=== PATIENT | female | born 1950 | race Caucasian/White ===

== ENCOUNTER 2022-09-30 15:47 | Emergency (ER) | payer MEDICARE, OTHER ==
[~2022-09-30] VITALS: Ht 149.9 cm; Wt 59.9 kg
--- NOTE | 2022-09-30 16:00 | NUR ---
DR NORIEGA AT BEDSIDE
[2022-09-30] MEDS ORDERED: ACETAMINOPHEN 325 MG TABLET ONE (16:13)
[2022-09-30] MEDS ORDERED: ACETAMINOPHEN 325 MG TABLET PO ONE (16:30)
--- NOTE | 2022-09-30 17:25 | NUR ---
[facility] CALLED FOR TRANSPORT ETA 45 MINS.
[2022-09-30] MEDS ORDERED: ACET-2605 PO (17:52)
--- NOTE | 2022-09-30 19:05 | NUR ---
PATIENT PICKED UP BY [facility] [address] IN STABLE CONDITION. PATIENT WILL BE BROUGHT TO [facility]. ALL BELONGINGS BROUGHT WITH THE PATIENT. SPOKE TO Chefs Feed AT [facility] FOR REPORT.
[2022-09-30 19:18] VITALS: BP 139/67
== END 2022-09-30 19:20 ==
LOC: ER 15:50
DX: M54.6 Pain in thoracic spine (principal); I11.0 Hypertensive heart disease with heart failure; I50.9 Heart failure, unspecified; Z88.8 Allergy status to other drugs, medicaments and biological substances; W18.30XA Fall on same level, unspecified, initial encounter; Y93.89 Activity, other specified; Y92.89 Other specified places as the place of occurrence of the external cause; Y99.8 Other external cause status
CPT/HCPCS: 73020

== ENCOUNTER 2022-11-18 07:33 | Inpatient (IN) | payer MEDICARE, OTHER ==
[~2022-11-18] VITALS: Ht 162.6 cm; Wt 61.7 kg
[~2022-11-18 07:33] MED LIST: ACET-2605 PO
[2022-11-18] MEDS ORDERED: NITROGLYCERIN PACKET 1 GM PACKET ONE ×2 (07:47→08:28)
[2022-11-18] MEDS ORDERED: ASPIRIN 325 MG TABLET ONE ×2 (07:47→08:29)
--- NOTE | 2022-11-18 07:50 | NUR ---
Made aware of plan of care- Pt States "I have NO Pain now." Refusing HL at this time
[2022-11-18] MEDS ORDERED: ASPIRIN 325 MG TABLET PO ONE (08:00)
[2022-11-18] MEDS ORDERED: NITROGLYCERIN PACKET 1 GM PACKET TD ONE (08:00)
--- NOTE | 2022-11-18 08:00 | NUR ---
MOVE SHEET SUBMITTED.
--- NOTE | 2022-11-18 08:07 | NUR ---
PATIENT REFUSED TO HAVE IV ACCESS AND MEDICATIONS. MADE AWARE
--- NOTE | 2022-11-18 08:07 | NUR ---
BLOOD SAMPLE OBTAINED BY LAB
--- NOTE | 2022-11-18 08:08 | NUR ---
URINE SAMPLE OBTAINED
[2022-11-18 08:31] LABS: BASOPHILS % (AUTO) 0.5 % (0.0-2.0); CALCIUM, SERUM 9.2 mg/dL (8.5-10.1); CARBON DIOXIDE 32 mmol/L (21-32); CHLORIDE 107 mmol/L (98-107); CREATININE 0.7 mg/dL (0.6-1.3); EOSINOPHILS % (AUTO) 4.5 % (0.0-6.0); GLUCOSE 96 mg/dL (74-106); HEMATOCRIT 34 % (33-45); HEMOGLOBIN 10.9 g/dL (11.5-14.8); LYMPHOCYTES # (AUTO) 1.2 K/uL (0.8-4.8); LYMPHOCYTES % (AUTO) 32.6 % (20.0-44.0); MEAN CORPUSCULAR HGB CONC 33 g/dl (31.0-36.0); MEAN CORPUSCULAR VOLUME 82 fL (82-100); MONOCYTES # (AUTO) 0.3 K/uL (0.1-1.30); MONOCYTES % (AUTO) 7.9 % (2.0-12.0); NEUTROPHILS % (AUTO) 54.5 % (43.0-81.0); PLATELET COUNT (AUTO) 202 K/uL (150-450); RED BLOOD CELL COUNT(AUTO) 4.11 MIL/uL (4.0-5.2); SODIUM SERUM 141 mmol/L (136-145); UREA NITROGEN, BLOOD 18 mg/dL (7-18); WHITE BLOOD COUNT (AUTO) 3.6 K/uL (4.3-11.0)
[2022-11-18 08:44] LABS: ALANINE AMINOTRANSFERASE 20 U/L (12-78); ALKALINE PHOSPHATASE 82 U/L (46-116); ASPARTATE AMINOTRANSFERASE 20 U/L (15-37); BILIRUBIN,DIRECT 0.1 mg/dL (0.0-0.2); BILIRUBIN,TOTAL 0.4 mg/dL (0.2-1.0); TOTAL PROTEIN, SERUM 7.4 g/dL (6.4-8.2)
--- NOTE | 2022-11-18 09:00 | NUR ---
Pt got very agitated/uncooperative and combative during IV stick Tried to bite EMT jenny, was cussing and calling staff names. Tried to kick. Had to be held by couple of personnel to successfully insert a line on Left Forearm. IV site secured and covered with kerlix dressing
[2022-11-18] MEDS ORDERED: DIVA250T4 PO (10:23)
[2022-11-18] MEDS ORDERED: FURO20TA4 PO (10:23)
[2022-11-18] MEDS ORDERED: DOCU100T10 PO (10:23)
[2022-11-18] MEDS ORDERED: LISI10TA29 PO (10:23)
[2022-11-18] MEDS ORDERED: LANS15CA18 PO (10:23)
[2022-11-18] MEDS ORDERED: OLAN15TA3 PO (10:23)
[2022-11-18] MEDS ORDERED: DONE5TAB34 PO (10:23)
[2022-11-18] MEDS ORDERED: POTA-10 PO (10:23)
[2022-11-18] MEDS ORDERED: FOLI1TAB26 PO (10:23)
[2022-11-18] MEDS ORDERED: CLON0.5T23 PO (10:23)
[2022-11-18] MEDS ORDERED: ACETAMINOPHEN 325 MG TABLET PO PRN ×2 (10:30→12:00)
[2022-11-18] MEDS ORDERED: MAG HYDROX/AL HYDROX/SIMETH 30 ML UDC PO PRN ×2 (10:30→12:00)
[2022-11-18] MEDS ORDERED: ZOLPIDEM TARTRATE 5 MG TABLET PO PRN ×2 (10:30→12:00)
[2022-11-18] MEDS ORDERED: MORPHINE SULFATE INJ 2 MG/ML DISP.SYRIN IV PRN ×2 (10:30→12:00)
[2022-11-18] MEDS ORDERED: ONDANSETRON HCL/PF 4 MG/2 ML VIAL IVP PRN ×2 (10:30→12:00)
[2022-11-18] MEDS ORDERED: Z GUARD REMEDY 4 OZ OINT TP PRN ×2 (10:30→12:00)
[2022-11-18] MEDS ORDERED: MAGNESIUM HYDROXIDE 30 ML UDC PO PRN ×2 (10:30→12:00)
--- NOTE | 2022-11-18 11:47 | NUR ---
NO acute changes/No obvious distress. Pt going to 325. Report to RN- Kailey. VSS denies any CP at this time
--- NOTE | 2022-11-18 12:15 | NUR ---
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 PT ARRIVED IN UNIT VIA GURNEY, PT TRANSFERRED TO BED WITH 2 PERSON ASSIST. PT IS UNSTEADY, UNABLE TO AMBULATE BUT ABLE TO TURN SELF AND SIT AT EDGE OF BED, PT ON BEDREST PENDING PT EVAL. PT IS AWAKE, ALERT/ORIENTED X2-3 WITH PERIODS OF FORGETFULNESS/CONFUSION. PT IS ALERT TO NAME, PLACE AND SOMETIMES DATE. PT ON RA WITH NO S/S OF SOB, DENIES CHEST PAIN AT THIS TIME. ON TELE MONITOR, CURRENTLY READS SR, HR= 75. IV ACCESS AT LFA # 20, SL, INTACT AND PATENT, WRAPPED IN KERLIX. PT'S SKIN IN INTACT, WITH 2 SMALL BRUISING AT R KNEE, PHOTO TAKEN AFFIXED TO CHART. PT STATES SHE IS VERY HUNGRY, ORDERED LUNCH TRAY PER DIET ORDER. PT ORIENTED TO STAFF AND UNIT, GIVEN CALL LIGHT TO CALL FOR HELP, PT VERBALIZED UNDERSTANDING. ALL SAFETY MEASURES IN PLACE, TABLE AND CALL LIGHT WITHIN EASY REACH, WILL CONT WITH PLAN OF CARE DURING SHIFT.
[2022-11-18 15:21] VITALS: BP 134/77
[2022-11-18] MEDS ORDERED: DOCUSATE SODIUM 100 MG CAPSULE PO SCH (17:00)
[2022-11-18] MEDS ORDERED: OLANZAPINE 5 MG TABLET PO SCH (17:00)
[2022-11-18] MEDS ORDERED: DIVALPROEX SODIUM 250 MG TABLET.DR PO SCH (17:00)
[2022-11-18] MEDS: DOCUSATE SODIUM 100 MG CAPSULE PO SCH (17:36)
[2022-11-18] MEDS: DIVALPROEX SODIUM 250 MG TABLET.DR PO SCH (17:36)
[2022-11-18] MEDS: OLANZAPINE 5 MG TABLET PO SCH (17:38)
--- NOTE | 2022-11-18 19:00 | NUR ---
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 HER LEGS EDEMATOUS 1 - 2+ EDEMA WARM TO TOUCH REVIEWED THE CALL LIGHT WITH HER TOLD HE NOT TO GET OOB W/O THE NURSE.
--- NOTE | 2022-11-18 19:13 | NUR ---
[facility] [employer] [employer] CLOSING NOTES: PT IS AWAKE, ALERT/ORIENTED X2-3 WITH PERIODS OF FORGETFULNESS/CONFUSION. FAMILY AT BEDSIDE. PT IS ALERT TO NAME, PLACE AND SOMETIMES DATE PT IS UNSTEADY, UNABLE TO AMBULATE BUT ABLE TO TURN SELF AND SIT AT EDGE OF BED, PT ON BEDREST PENDING PT EVAL. . PT ON RA WITH NO S/S OF SOB, DENIES CHEST PAIN AT THIS TIME. ON TELE MONITOR, CURRENTLY READS SR, HR= 68. IV ACCESS AT LFA # 20, SL, INTACT AND PATENT, WRAPPED IN KERLIX. GIVEN CALL LIGHT TO CALL FOR HELP, PT VERBALIZED UNDERSTANDING. ALL SAFETY MEASURES IN PLACE, TABLE AND CALL LIGHT WITHIN EASY REACH, ENDORSED TO PM SHIFT. Addendum: 11/18/22 at 1932 by MARCO JENSEN RN BLE SWELLING, HELD DVT PUMP, ASKED FOR CHEM DVT PPX, PENDING
[2022-11-18 20:00] VITALS: BP 133/82
[2022-11-19] VITALS: BP 130/80
[2022-11-19 04:00] VITALS: BP 126/55
--- NOTE | 2022-11-19 05:52 | NUR ---
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
[2022-11-19] MEDS ORDERED: PANTOPRAZOLE 40 MG TABLET.DR PO SCH ×2 (07:30)
--- NOTE | 2022-11-19 07:30 | NUR ---
ms rn received on bed, awake,alert.oriented x1-2, confuse, not in any form of distress, respirations even and unlabored,no sob noted, lungs are clear,abdomen soft,positive bowel sounds,denies pain at this time, will monitor patient.
[2022-11-19 08:00] VITALS: BP 145/77
[2022-11-19] MEDS ORDERED: LISINOPRIL (10MG) 10 MG TABLET PO SCH ×2 (09:00)
[2022-11-19] MEDS ORDERED: FUROSEMIDE 20 MG TABLET PO SCH ×2 (09:00)
[2022-11-19] MEDS ORDERED: DONEPEZIL 5 MG TABLET PO SCH ×2 (09:00)
[2022-11-19] MEDS ORDERED: POTASSIUM CHLORIDE 10 MEQ TABLET.SA PO SCH ×2 (09:00)
[2022-11-19] MEDS ORDERED: ASPIRIN 81 MG TAB.CHEW PO SCH ×2 (09:00)
[2022-11-19] MEDS ORDERED: MULTIVITAMIN/LUTEIN/MINERALS 1 TAB PO SCH ×2 (09:00)
--- NOTE | 2022-11-19 10:00 | NUR ---
ms manzanares breakfast served,due meds given,tolerated well.
[2022-11-19] MEDS: DOCUSATE SODIUM 100 MG CAPSULE PO SCH ×2 (10:05→17:42)
[2022-11-19] MEDS: DIVALPROEX SODIUM 250 MG TABLET.DR PO SCH ×2 (10:08→17:42)
[2022-11-19] MEDS: OLANZAPINE 5 MG TABLET PO SCH ×2 (10:08→17:42)
[2022-11-19 12:00] VITALS: BP 120/70
--- NOTE | 2022-11-19 17:24 | NUR ---
ms rn patient on bed, no distress noted,all needs attended.
--- NOTE | 2022-11-19 18:00 | NUR ---
ms rn ready to be transferred, patient refuse to take picture of small bruise at right knee.
--- NOTE | 2022-11-19 18:15 | NUR ---
ms rn patient went to [facility] at [facility] living via ambulance, all needs attended.
== END 2022-11-19 18:29 | DRG 205 ==
LOC: ER 07:51 → TELE 11:55
PROVIDERS: ADMIT Nurse Practitioner Acute Care; ATTEND Nurse Practitioner Acute Care
DX: M94.0 Chondrocostal junction syndrome [Tietze] (principal); G92.8 Other toxic encephalopathy; E44.0 Moderate protein-calorie malnutrition; Z20.822 Contact with and (suspected) exposure to COVID-19; F03.90 Unspecified dementia, unspecified severity, without behavioral disturbance, psychotic disturbance, mood disturbance, and anxiety; I11.0 Hypertensive heart disease with heart failure; I50.9 Heart failure, unspecified; K21.9 Gastro-esophageal reflux disease without esophagitis; Z88.8 Allergy status to other drugs, medicaments and biological substances; Z79.899 Other long term (current) drug therapy; E88.09 Other disorders of plasma-protein metabolism, not elsewhere classified; Z79.82 Long term (current) use of aspirin; I70.0 Atherosclerosis of aorta
CPT/HCPCS: 36415; 71045-TC; 80048-TC; 80076-TC; 83880; 84484-TC; 85025-TC; 87081-TC; 93307-TC; 97110-TC; 97112-TC; 97116-TC; C9803; G0378

== ENCOUNTER 2023-07-09 09:55 | Inpatient (IN) | payer MEDICARE, OTHER ==
[~2023-07-09] VITALS: Ht 165.1 cm; Wt 64.0 kg
[~2023-07-09 09:55] MED LIST changes: +CLON0.5T23 PO; +DIVA250T4 PO; +DOCU100T10 PO; +DONE5TAB34 PO; +FOLI1TAB26 PO; +FURO20TA4 PO; +LANS15CA18 PO; +LISI10TA29 PO; +OLAN15TA3 PO; +POTA-10 PO
[2023-07-09 11:33] LABS: BASOPHILS % (AUTO) 0.4 % (0.0-2.0); EOSINOPHILS # (AUTO) 0.4 K/uL (0.0-0.7); EOSINOPHILS % (AUTO) 7.7 % (0.0-6.0); HEMATOCRIT 34 % (33-45); HEMOGLOBIN 11.3 g/dL (11.5-14.8); LYMPHOCYTES % (AUTO) 41.1 % (20.0-44.0); MEAN CORPUSCULAR HEMOGLOBIN 28 PG (26.0-33.0); MEAN CORPUSCULAR HGB CONC 33 g/dl (31.0-36.0); MEAN CORPUSCULAR VOLUME 84 fL (82-100); MONOCYTES # (AUTO) 0.6 K/uL (0.1-1.30); MONOCYTES % (AUTO) 11.2 % (2.0-12.0); NEUTROPHILS % (AUTO) 39.6 % (43.0-81.0); PLATELET COUNT (AUTO) 162 K/uL (150-450); RED BLOOD CELL COUNT(AUTO) 4.08 MIL/uL (4.0-5.2); RED CELL DISTRIBUTION WIDTH 14.6 % (11.5-15.0)
[2023-07-09 11:35] LABS: CALCIUM, SERUM 9.1 mg/dL (8.5-10.1); CARBON DIOXIDE 24 mmol/L (21-32); CHLORIDE 108 mmol/L (98-107); CREATININE 0.6 mg/dL (0.6-1.3); GLUCOSE 102 mg/dL (74-106); POTASSIUM 4.8 mmol/L (3.5-5.1); SODIUM SERUM 140 mmol/L (136-145); UREA NITROGEN, BLOOD 22 mg/dL (7-18)
[2023-07-09 11:37] LABS: ALANINE AMINOTRANSFERASE 18 U/L (12-78); ALBUMIN 2.8 g/dL (3.4-5.0); ALCOHOL, BLOOD < 3 mg/dL (0-10); ALKALINE PHOSPHATASE 111 U/L (46-116); ASPARTATE AMINOTRANSFERASE 18 U/L (15-37); BILIRUBIN,TOTAL 0.3 mg/dL (0.2-1.0); TOTAL PROTEIN, SERUM 7.5 g/dL (6.4-8.2)
[2023-07-09 11:38] LABS: ACETAMINOPHEN <10 ug/ml (10-30); BILIRUBIN,DIRECT < 0.1 mg/dL (0.0-0.2); SALICYLATE 0.5 mg/dL (2.8-20.0)
[2023-07-09] MEDS ORDERED: TOLT4CAP PO (14:46)
[2023-07-09] MEDS ORDERED: LOSA50TA39 PO (14:46)
[2023-07-09] MEDS ORDERED: ESCI5TAB PO (14:46)
[2023-07-09] MEDS ORDERED: OLAN5TAB6 SL (14:46)
[2023-07-09] MEDS ORDERED: CARV6.25 PO (14:46)
[2023-07-09] MEDS ORDERED: CLON0.1T PO (14:47)
[2023-07-09] MEDS ORDERED: ATOR40TA PO (14:47)
[2023-07-09 16:00] VITALS: BP 150/82; TEMP 98.8; O2SAT 99
[2023-07-09 16:28] VITALS: BP 150/82; TEMP 98.8; O2SAT 99
[2023-07-09] MEDS ORDERED: TEMAZEPAM 7.5 MG CAPSULE PO PRN (16:30)
[2023-07-09] MEDS ORDERED: BLOOD SUGAR DIAGNOSTIC 1 EACH STRIP IN ONE (16:30)
[2023-07-09] MEDS ORDERED: MAGNESIUM HYDROXIDE 30 ML UDC PO PRN (16:30)
[2023-07-09] MEDS ORDERED: ACETAMINOPHEN 325 MG TABLET PO PRN (16:30)
[2023-07-09] MEDS ORDERED: MAG HYDROX/AL HYDROX/SIMETH 30 ML UDC PO PRN (16:30)
[2023-07-09 20:01] VITALS: BP 144/98; TEMP 98.4; O2SAT 100
[2023-07-10 08:00] VITALS: BP 123/56; TEMP 98.4; O2SAT 96
[2023-07-10] MEDS: OLANZAPINE ZYDIS 5 MG TAB.RAPDIS PO SCH ×2 (11:53→11:56)
[2023-07-10 16:00] VITALS: BP 128/65; TEMP 97.9; O2SAT 100
[2023-07-10 20:04] VITALS: BP 140/84; TEMP 97.9; O2SAT 96
[2023-07-11 08:00] VITALS: BP 157/62; TEMP 97.7; O2SAT 99
[2023-07-11] MEDS: OLANZAPINE ZYDIS 5 MG TAB.RAPDIS PO SCH ×2 (08:51→21:43)
[2023-07-11 16:00] VITALS: BP 158/73; TEMP 98.6; O2SAT 97
[2023-07-11 21:55] VITALS: BP 148/74; TEMP 98.8; O2SAT 100
[2023-07-12 08:00] VITALS: BP 153/81; TEMP 98; O2SAT 98
[2023-07-12] MEDS ORDERED: CLONIDINE HCL 0.1 MG TABLET PO PRN (09:30)
[2023-07-12] MEDS: risperiDONE-M 0.5 MG TAB.RAPDIS PO SCH ×3 (11:41→21:09)
[2023-07-12] MEDS: OXYBUTYNIN CHLORIDE 5 MG TABLET PO SCH ×2 (12:38→16:32)
[2023-07-12 16:00] VITALS: BP 132/77; TEMP 98.7; O2SAT 100
[2023-07-12] MEDS: CARVEDILOL 6.25 MG TABLET PO SCH (16:34)
[2023-07-12 20:31] VITALS: BP 140/68; TEMP 97.9; O2SAT 100
[2023-07-12] MEDS: ATORVASTATIN 40 MG TABLET PO SCH ×2 (21:09→21:16)
[2023-07-13 08:00] VITALS: BP 179/86; TEMP 97.9; O2SAT 100
[2023-07-13] MEDS: CARVEDILOL 6.25 MG TABLET PO SCH ×3 (08:36→17:03)
[2023-07-13] MEDS: LOSARTAN POTASSIUM 50 MG TABLET PO SCH (08:37)
[2023-07-13] MEDS: risperiDONE-M 0.5 MG TAB.RAPDIS PO SCH ×3 (09:00→21:32)
[2023-07-13] MEDS: OXYBUTYNIN CHLORIDE 5 MG TABLET PO SCH ×4 (09:00→17:02)
[2023-07-13] MEDS ORDERED: OLANZAPINE 10 MG VIAL IM ONE (10:00)
[2023-07-13] MEDS ORDERED: risperiDONE-M 0.5 MG TAB.RAPDIS PO SCH (10:00)
[2023-07-13 16:00] VITALS: BP 118/62; TEMP 97.7; O2SAT 100
[2023-07-13 20:31] VITALS: BP 133/86; TEMP 97.7; O2SAT 100
[2023-07-13] MEDS ORDERED: risperiDONE-M 0.5 MG TAB.RAPDIS ONE (21:29)
[2023-07-13] MEDS: ATORVASTATIN 40 MG TABLET PO SCH (21:32)
[2023-07-14 08:00] VITALS: BP 137/71; TEMP 97.8; O2SAT 97
[2023-07-14] MEDS: LOSARTAN POTASSIUM 50 MG TABLET PO SCH (09:00)
[2023-07-14] MEDS: CARVEDILOL 6.25 MG TABLET PO SCH ×2 (09:00→17:00)
[2023-07-14] MEDS: OXYBUTYNIN CHLORIDE 5 MG TABLET PO SCH ×3 (09:00→17:00)
[2023-07-14] MEDS: risperiDONE LIQUID 1 MG/ML ML PO SCH ×2 (10:00→21:00)
[2023-07-14] MEDS: OLANZAPINE 10 MG VIAL IM PRN ×2 (11:06→22:10)
[2023-07-14 16:00] VITALS: BP 121/90; TEMP 97.8; O2SAT 100
[2023-07-14 20:00] VITALS: BP 128/75; TEMP 97.5; O2SAT 98
[2023-07-14] MEDS: ATORVASTATIN 40 MG TABLET PO SCH (21:15)
[2023-07-15 08:00] VITALS: BP 155/70; TEMP 97.6; O2SAT 95
[2023-07-15] MEDS: LOSARTAN POTASSIUM 50 MG TABLET PO SCH (09:59)
[2023-07-15] MEDS: risperiDONE LIQUID 1 MG/ML ML PO SCH ×2 (09:59→21:24)
[2023-07-15] MEDS: OXYBUTYNIN CHLORIDE 5 MG TABLET PO SCH ×3 (09:59→16:34)
[2023-07-15] MEDS: CARVEDILOL 6.25 MG TABLET PO SCH ×2 (10:00→16:34)
[2023-07-15 16:00] VITALS: BP 111/64; TEMP 97.6; O2SAT 100
[2023-07-15 20:00] VITALS: BP 125/55; TEMP 98.1; O2SAT 95
[2023-07-15] MEDS: ATORVASTATIN 40 MG TABLET PO SCH (21:24)
[2023-07-16 08:00] VITALS: BP 126/60; TEMP 97.8; O2SAT 99
[2023-07-16] MEDS: LOSARTAN POTASSIUM 50 MG TABLET PO SCH (09:44)
[2023-07-16] MEDS: risperiDONE LIQUID 1 MG/ML ML PO SCH ×2 (09:45→20:57)
[2023-07-16] MEDS: OXYBUTYNIN CHLORIDE 5 MG TABLET PO SCH ×3 (09:45→16:44)
[2023-07-16] MEDS: CARVEDILOL 6.25 MG TABLET PO SCH ×2 (09:45→16:43)
[2023-07-16 16:00] VITALS: BP 127/84; TEMP 97.7; O2SAT 97
[2023-07-16 20:03] VITALS: BP 157/71; TEMP 99.1; O2SAT 99
[2023-07-16] MEDS: ATORVASTATIN 40 MG TABLET PO SCH (22:03)
[2023-07-17 08:00] VITALS: BP 145/62; TEMP 97.8; O2SAT 97
[2023-07-17] MEDS: LOSARTAN POTASSIUM 50 MG TABLET PO SCH (08:35)
[2023-07-17] MEDS: CARVEDILOL 6.25 MG TABLET PO SCH ×2 (08:35→16:17)
[2023-07-17] MEDS: OXYBUTYNIN CHLORIDE 5 MG TABLET PO SCH ×4 (08:35→16:18)
[2023-07-17] MEDS: risperiDONE LIQUID 1 MG/ML ML PO SCH ×3 (08:55→20:38)
[2023-07-17 16:00] VITALS: BP 109/66; TEMP 97.8; O2SAT 98
[2023-07-17 20:00] VITALS: BP 157/71; TEMP 99.1; O2SAT 99
[2023-07-17] MEDS: ATORVASTATIN 40 MG TABLET PO SCH (21:58)
[2023-07-18 08:00] VITALS: BP 149/72; TEMP 98.6; O2SAT 98
[2023-07-18] MEDS: LOSARTAN POTASSIUM 50 MG TABLET PO SCH (09:01)
[2023-07-18] MEDS: OXYBUTYNIN CHLORIDE 5 MG TABLET PO SCH ×3 (09:01→17:22)
[2023-07-18] MEDS: CARVEDILOL 6.25 MG TABLET PO SCH ×2 (09:01→17:21)
[2023-07-18] MEDS: risperiDONE LIQUID 1 MG/ML ML PO SCH ×2 (09:09→21:17)
[2023-07-18] MEDS: LORAZEPAM 0.5 MG TABLET PO PRN (10:22)
[2023-07-18 16:00] VITALS: BP 102/66; TEMP 98.1; O2SAT 100
[2023-07-18 20:33] VITALS: BP 112/56; TEMP 98.2; O2SAT 100
[2023-07-18] MEDS: ATORVASTATIN 40 MG TABLET PO SCH (21:17)
[2023-07-19 08:00] VITALS: BP 126/65; TEMP 97.7; O2SAT 96
[2023-07-19] MEDS: OXYBUTYNIN CHLORIDE 5 MG TABLET PO SCH ×3 (08:22→16:42)
[2023-07-19] MEDS: CARVEDILOL 6.25 MG TABLET PO SCH ×2 (08:22→16:43)
[2023-07-19] MEDS: risperiDONE LIQUID 1 MG/ML ML PO SCH ×2 (08:23→21:18)
[2023-07-19] MEDS: LOSARTAN POTASSIUM 50 MG TABLET PO SCH (08:23)
[2023-07-19 16:03] VITALS: BP 114/56; TEMP 98; O2SAT 95
[2023-07-19 20:00] VITALS: BP 150/78; TEMP 97.9; O2SAT 98
[2023-07-19] MEDS: ATORVASTATIN 40 MG TABLET PO SCH (21:18)
[2023-07-20 08:00] VITALS: BP 126/54; TEMP 98.7; O2SAT 96
[2023-07-20] MEDS: CARVEDILOL 6.25 MG TABLET PO SCH ×2 (08:43→16:37)
[2023-07-20] MEDS: LOSARTAN POTASSIUM 50 MG TABLET PO SCH (08:43)
[2023-07-20] MEDS: risperiDONE LIQUID 1 MG/ML ML PO SCH ×2 (08:44→20:57)
[2023-07-20] MEDS: OXYBUTYNIN CHLORIDE 5 MG TABLET PO SCH ×3 (08:44→16:37)
[2023-07-20 16:00] VITALS: BP 132/58; TEMP 97.7; O2SAT 99
[2023-07-20 20:11] VITALS: BP 136/73; TEMP 98.4; O2SAT 100
[2023-07-20] MEDS: ATORVASTATIN 40 MG TABLET PO SCH (21:11)
[2023-07-21 08:00] VITALS: BP 117/60; TEMP 97.7; O2SAT 96
[2023-07-21] MEDS: risperiDONE LIQUID 1 MG/ML ML PO SCH ×2 (08:36→20:31)
[2023-07-21] MEDS: OXYBUTYNIN CHLORIDE 5 MG TABLET PO SCH ×3 (08:37→17:03)
[2023-07-21] MEDS: CARVEDILOL 6.25 MG TABLET PO SCH ×2 (08:37→17:02)
[2023-07-21] MEDS: LOSARTAN POTASSIUM 50 MG TABLET PO SCH (08:37)
[2023-07-21] MEDS: LORAZEPAM 0.5 MG TABLET PO PRN (13:47)
[2023-07-21 16:00] VITALS: BP 111/64; TEMP 97.8; O2SAT 99
[2023-07-21] MEDS: ATORVASTATIN 40 MG TABLET PO SCH ×2 (21:11→21:16)
[2023-07-22 08:00] VITALS: BP 130/66; TEMP 98; O2SAT 98
[2023-07-22] MEDS: LOSARTAN POTASSIUM 50 MG TABLET PO SCH (09:16)
[2023-07-22] MEDS: OXYBUTYNIN CHLORIDE 5 MG TABLET PO SCH ×3 (09:16→16:32)
[2023-07-22] MEDS: CARVEDILOL 6.25 MG TABLET PO SCH ×2 (09:16→16:32)
[2023-07-22] MEDS: risperiDONE LIQUID 1 MG/ML ML PO SCH ×2 (09:17→21:29)
[2023-07-22 16:00] VITALS: BP 133/74; TEMP 98; O2SAT 95
[2023-07-22 20:00] VITALS: BP 153/81; TEMP 98; O2SAT 98
[2023-07-22] MEDS: ATORVASTATIN 40 MG TABLET PO SCH (21:29)
[2023-07-23 08:00] VITALS: BP 138/65; TEMP 98.9; O2SAT 95
[2023-07-23] MEDS: risperiDONE LIQUID 1 MG/ML ML PO SCH ×2 (09:08→21:53)
[2023-07-23] MEDS: LOSARTAN POTASSIUM 50 MG TABLET PO SCH (09:08)
[2023-07-23] MEDS: OXYBUTYNIN CHLORIDE 5 MG TABLET PO SCH ×3 (09:09→16:23)
[2023-07-23] MEDS: CARVEDILOL 6.25 MG TABLET PO SCH ×2 (09:09→16:24)
[2023-07-23 16:00] VITALS: BP 118/68; TEMP 97.9; O2SAT 99
[2023-07-23 20:00] VITALS: BP 123/68; TEMP 98.4; O2SAT 98
[2023-07-23] MEDS: ATORVASTATIN 40 MG TABLET PO SCH (21:53)
[2023-07-24 08:00] VITALS: BP 151/76; TEMP 97.7; O2SAT 97
[2023-07-24] MEDS: LOSARTAN POTASSIUM 50 MG TABLET PO SCH (08:56)
[2023-07-24] MEDS: OXYBUTYNIN CHLORIDE 5 MG TABLET PO SCH ×3 (08:56→16:29)
[2023-07-24] MEDS: CARVEDILOL 6.25 MG TABLET PO SCH ×2 (08:57→16:29)
[2023-07-24] MEDS: risperiDONE LIQUID 1 MG/ML ML PO SCH ×2 (08:58→21:12)
[2023-07-24 16:00] VITALS: BP 121/70; TEMP 98.4; O2SAT 99
[2023-07-24 20:26] VITALS: BP 130/96; TEMP 98.6; O2SAT 100
[2023-07-24] MEDS: ATORVASTATIN 40 MG TABLET PO SCH ×2 (21:12→21:50)
[2023-07-25 08:00] VITALS: BP 113/56; TEMP 97.7; O2SAT 98
[2023-07-25 08:37] VITALS: BP 113/56
[2023-07-25] MEDS: CARVEDILOL 6.25 MG TABLET PO SCH (08:37)
[2023-07-25] MEDS: LOSARTAN POTASSIUM 50 MG TABLET PO SCH (08:37)
[2023-07-25] MEDS: OXYBUTYNIN CHLORIDE 5 MG TABLET PO SCH ×2 (08:38→12:08)
[2023-07-25] MEDS: risperiDONE LIQUID 1 MG/ML ML PO SCH (08:38)
== END 2023-07-25 14:16 | DRG 885 ==
LOC: ER 09:55 → GPS 15:21
PROVIDERS: ADMIT Psychiatry & Neurology Psychosomatic Medicine
DX: F20.9 Schizophrenia, unspecified (principal); I11.0 Hypertensive heart disease with heart failure; E44.1 Mild protein-calorie malnutrition; Z59.00 Homelessness unspecified; K21.9 Gastro-esophageal reflux disease without esophagitis; F03.90 Unspecified dementia, unspecified severity, without behavioral disturbance, psychotic disturbance, mood disturbance, and anxiety; E88.09 Other disorders of plasma-protein metabolism, not elsewhere classified; I50.9 Heart failure, unspecified; Z79.899 Other long term (current) drug therapy; Z20.822 Contact with and (suspected) exposure to COVID-19; F25.9 Schizoaffective disorder, unspecified; Z73.6 Limitation of activities due to disability; F29 Unspecified psychosis not due to a substance or known physiological condition; Z91.148 Patient's other noncompliance with medication regimen for other reason; Z68.23 Body mass index [BMI] 23.0-23.9, adult
CPT/HCPCS: 36415; 80048-TC; 80076-TC; 85025-TC; 97112-TC; 97116-TC; 97530-TC; G0480; J3490

== ENCOUNTER 2023-09-05 21:07 | Inpatient (IN) | payer MEDICARE, OTHER ==
[~2023-09-05] VITALS: Ht 154.9 cm; Wt 63.5 kg
[~2023-09-05 21:07] MED LIST changes: -ACET-2605 PO; +ATOR40TA PO; +CARV6.25 PO; +CLON0.1T PO; -CLON0.5T23 PO; -DIVA250T4 PO; -DOCU100T10 PO; -DONE5TAB34 PO; +ESCI5TAB PO; -FOLI1TAB26 PO; -FURO20TA4 PO; -LANS15CA18 PO; -LISI10TA29 PO; +LOSA50TA39 PO; -OLAN15TA3 PO; +OLAN5TAB6 SL; -POTA-10 PO; +TOLT4CAP PO
[2023-09-05] MEDS ORDERED: LORAZEPAM INJ 2 MG/ML VIAL IM ONE (22:30)
[2023-09-05] MEDS ORDERED: HALOPERIDOL LACTATE INJ 5 MG/ML VIAL IM ONE (22:30)
[2023-09-05] MEDS ORDERED: diphenhydrAMINE HCL 50 MG/ML VIAL IM ONE (22:30)
[2023-09-05] MEDS ORDERED: diphenhydrAMINE HCL 50 MG/ML VIAL ONE (22:34)
[2023-09-05] MEDS ORDERED: HALOPERIDOL LACTATE INJ 5 MG/ML VIAL ONE (22:34)
[2023-09-05] MEDS ORDERED: LORAZEPAM INJ 2 MG/ML VIAL ONE (22:35)
[2023-09-05 22:44] LABS: APPEARANCE,URINE CLEAR (CLEAR); BILIRUBIN,URINE NEGATIVE (NEGATIVE); BLOOD, URINE 1+ Ery/uL (NEGATIVE); COLOR,URINE YELLOW (YELLOW); KETONES,URINE NEGATIVE (NEGATIVE); LEUKOCYTE ESTERASE ,URINE NEGATIVE (NEGATIVE); NITRITE, URINE NEGATIVE (NEGATIVE); PH,URINE 5.5 (5.0-8.0); PROTEIN,URINE NEGATIVE (NEGATIVE); UGLUCOSE NEGATIVE (NEGATIVE); UROBILINOGEN,URINE 0.2 EU/dL (0.2)
[2023-09-05 22:53] LABS: ADD URINE CULTURE NO; BACTERIA,URINE Rare /HPF (None Seen); SQUAMOUS EPITHELIAL CELL,UR Few /HPF (None Seen); WBC,URINE 0-2 /HPF (0-3)
[2023-09-05 22:55] LABS: AMPHETAMINE, URINE NEGATIVE (NEGATIVE); BARBITURATE, URINE NEGATIVE (NEGATIVE); BENZODIAZEPINE, URINE NEGATIVE (NEGATIVE); CANNABINOID, URINE NEGATIVE (NEGATIVE); COCCAINE, URINE NEGATIVE (NEGATIVE); OPIATE, URINE NEGATIVE (NEGATIVE); PHENCYCLIDINE SCREEN,URINE NEGATIVE (NEGATIVE)
[2023-09-05 23:08] LABS: BASOPHILS % (AUTO) 0.3 % (0.0-2.0); EOSINOPHILS # (AUTO) 0.1 K/uL (0.0-0.7); EOSINOPHILS % (AUTO) 1.9 % (0.0-6.0); HEMATOCRIT 37 % (33-45); LYMPHOCYTES # (AUTO) 1.6 K/uL (0.8-4.8); LYMPHOCYTES % (AUTO) 35.7 % (20.0-44.0); MEAN CORPUSCULAR HEMOGLOBIN 27 PG (26.0-33.0); MEAN CORPUSCULAR HGB CONC 32 g/dl (31.0-36.0); MEAN CORPUSCULAR VOLUME 84 fL (82-100); MONOCYTES # (AUTO) 0.3 K/uL (0.1-1.30); MONOCYTES % (AUTO) 7.2 % (2.0-12.0); NEUTROPHILS # (AUTO) 2.4 K/uL (1.8-8.9); NEUTROPHILS % (AUTO) 54.9 % (43.0-81.0); PLATELET COUNT (AUTO) 200 K/uL (150-450); RED CELL DISTRIBUTION WIDTH 14.6 % (11.5-15.0); WHITE BLOOD COUNT (AUTO) 4.4 K/uL (4.3-11.0)
[2023-09-05 23:14] LABS: CALCIUM, SERUM 8.9 mg/dL (8.5-10.1); CARBON DIOXIDE 27 mmol/L (21-32); CHLORIDE 104 mmol/L (98-107); CREATININE 0.6 mg/dL (0.6-1.3); GLUCOSE 110 mg/dL (74-106); POTASSIUM 3.5 mmol/L (3.5-5.1); SODIUM SERUM 138 mmol/L (136-145); UREA NITROGEN, BLOOD 11 mg/dL (7-18)
[2023-09-05 23:21] LABS: ALANINE AMINOTRANSFERASE 18 U/L (12-78); ALBUMIN 3.2 g/dL (3.4-5.0); ALCOHOL, BLOOD < 3 mg/dL (0-10); ALKALINE PHOSPHATASE 79 U/L (46-116); ASPARTATE AMINOTRANSFERASE 19 U/L (15-37); BILIRUBIN,DIRECT 0.1 mg/dL (0.0-0.2); BILIRUBIN,TOTAL 0.5 mg/dL (0.2-1.0)
[2023-09-05 23:27] LABS: ACETAMINOPHEN <10 ug/ml (10-30); SALICYLATE 0.5 mg/dL (2.8-20.0)
[2023-09-06 02:25] VITALS: BP 131/63; TEMP 98.4; O2SAT 98
[2023-09-06] MEDS ORDERED: MAGNESIUM HYDROXIDE 30 ML UDC PO PRN (03:00)
[2023-09-06] MEDS ORDERED: ACETAMINOPHEN 325 MG TABLET PO PRN (03:00)
[2023-09-06] MEDS ORDERED: TEMAZEPAM 7.5 MG CAPSULE PO PRN (03:00)
[2023-09-06] MEDS ORDERED: MAG HYDROX/AL HYDROX/SIMETH 30 ML UDC PO PRN (03:00)
[2023-09-06] MEDS ORDERED: BLOOD SUGAR DIAGNOSTIC 1 EACH STRIP IN ONE (03:00)
[2023-09-06] MEDS ORDERED: CARV6.252 PO (04:00)
[2023-09-06] MEDS ORDERED: ATOR40TA PO (04:00)
[2023-09-06] MEDS ORDERED: OXYB5TAB16 PO (04:00)
[2023-09-06] MEDS ORDERED: LOSA50TA39 PO (04:00)
[2023-09-06] MEDS ORDERED: RISP1TAB97 PO (04:00)
[2023-09-06 08:00] VITALS: BP 129/72; TEMP 98.7; O2SAT 100
[2023-09-06] MEDS: risperiDONE 1 MG TABLET PO SCH ×2 (12:43→16:09)
[2023-09-06 16:00] VITALS: BP 115/68; TEMP 98.6; O2SAT 98
[2023-09-06] MEDS: OXYBUTYNIN CHLORIDE 5 MG TABLET PO SCH (17:00)
[2023-09-06] MEDS: CARVEDILOL 6.25 MG TABLET PO SCH (17:00)
[2023-09-06 20:00] VITALS: BP 138/67; TEMP 98.8; O2SAT 98
[2023-09-06] MEDS: ATORVASTATIN 40 MG TABLET PO SCH (21:10)
[2023-09-07 08:00] VITALS: BP 153/72; TEMP 98.6; O2SAT 97
[2023-09-07] MEDS: risperiDONE 1 MG TABLET PO SCH ×3 (08:16→16:30)
[2023-09-07] MEDS: OXYBUTYNIN CHLORIDE 5 MG TABLET PO SCH ×3 (08:16→16:30)
[2023-09-07] MEDS: LORAZEPAM 0.5 MG TABLET PO PRN (08:17)
[2023-09-07] MEDS: CARVEDILOL 6.25 MG TABLET PO SCH ×2 (08:17→16:29)
[2023-09-07] MEDS: LOSARTAN POTASSIUM 50 MG TABLET PO SCH (08:21)
[2023-09-07 16:00] VITALS: BP 132/66; TEMP 98.1; O2SAT 99
[2023-09-07 20:09] VITALS: BP 142/67; TEMP 97.9; O2SAT 99
[2023-09-07] MEDS: ATORVASTATIN 40 MG TABLET PO SCH (21:51)
[2023-09-08 08:00] VITALS: BP 158/87; TEMP 98.6; O2SAT 97
[2023-09-08] MEDS: OXYBUTYNIN CHLORIDE 5 MG TABLET PO SCH ×3 (09:10→17:00)
[2023-09-08] MEDS: risperiDONE 1 MG TABLET PO SCH ×3 (09:10→17:00)
[2023-09-08] MEDS: CARVEDILOL 6.25 MG TABLET PO SCH ×2 (09:10→17:10)
[2023-09-08] MEDS: LOSARTAN POTASSIUM 50 MG TABLET PO SCH (09:10)
[2023-09-08 16:00] VITALS: BP 135/82; TEMP 97.4; O2SAT 95
[2023-09-08] MEDS: ATORVASTATIN 40 MG TABLET PO SCH (21:35)
[2023-09-08] MEDS ORDERED: risperiDONE 1 MG TABLET PO SCH (22:00)
[2023-09-09 05:07] VITALS: BP 135/82; TEMP 97.9; O2SAT 97
[2023-09-09 08:00] VITALS: BP 137/89; TEMP 97.9; O2SAT 97
[2023-09-09] MEDS: OXYBUTYNIN CHLORIDE 5 MG TABLET PO SCH ×3 (10:01→17:09)
[2023-09-09] MEDS: CARVEDILOL 6.25 MG TABLET PO SCH ×2 (10:01→17:08)
[2023-09-09] MEDS: LOSARTAN POTASSIUM 50 MG TABLET PO SCH (10:01)
[2023-09-09] MEDS: risperiDONE 1 MG TABLET PO SCH ×2 (10:02→13:31)
[2023-09-09] MEDS: LORAZEPAM 0.5 MG TABLET PO PRN (10:55)
[2023-09-09 16:00] VITALS: BP 135/72; TEMP 97.9; O2SAT 96
[2023-09-09] MEDS: risperiDONE-M 0.5 MG TAB.RAPDIS PO SCH ×2 (17:08→22:20)
[2023-09-09 17:56] VITALS: BP 158/87; TEMP 98.6; O2SAT 97
[2023-09-09] MEDS ORDERED: IBUPROFEN 400 MG TABLET PO PRN (21:00)
[2023-09-09] MEDS ORDERED: risperiDONE 1 MG TABLET PO SCH (22:00)
[2023-09-09] MEDS: ATORVASTATIN 40 MG TABLET PO SCH (22:19)
[2023-09-10 05:32] VITALS: BP 150/67; TEMP 98.1; O2SAT 98
[2023-09-10 08:00] VITALS: BP 130/82; TEMP 98.9; O2SAT 98
[2023-09-10] MEDS: CARVEDILOL 6.25 MG TABLET PO SCH ×2 (09:56→17:28)
[2023-09-10] MEDS: LOSARTAN POTASSIUM 50 MG TABLET PO SCH (09:57)
[2023-09-10] MEDS: OXYBUTYNIN CHLORIDE 5 MG TABLET PO SCH ×3 (09:57→17:28)
[2023-09-10] MEDS: risperiDONE-M 0.5 MG TAB.RAPDIS PO SCH ×4 (09:57→21:51)
[2023-09-10] MEDS: LORAZEPAM 0.5 MG TABLET PO PRN (14:32)
[2023-09-10 16:00] VITALS: BP 111/78; TEMP 98.8; O2SAT 97
[2023-09-10 20:08] VITALS: BP 137/85; TEMP 98.6; O2SAT 100
[2023-09-10] MEDS: ATORVASTATIN 40 MG TABLET PO SCH ×2 (21:18→21:50)
[2023-09-11 08:00] VITALS: BP 131/75; TEMP 97.9; O2SAT 100
[2023-09-11] MEDS: LOSARTAN POTASSIUM 50 MG TABLET PO SCH ×2 (09:00→09:16)
[2023-09-11] MEDS: OXYBUTYNIN CHLORIDE 5 MG TABLET PO SCH ×5 (09:00→17:11)
[2023-09-11] MEDS: CARVEDILOL 6.25 MG TABLET PO SCH ×4 (09:00→17:11)
[2023-09-11] MEDS: risperiDONE-M 0.5 MG TAB.RAPDIS PO SCH ×3 (09:17→21:35)
[2023-09-11] MEDS ORDERED: RISPERIDONE 0.25 MG TAB.RAPDIS PO SCH (13:30)
[2023-09-11 16:13] VITALS: BP 134/94; TEMP 97.9; O2SAT 96
[2023-09-11] MEDS: risperiDONE 1 MG TABLET PO SCH ×2 (17:11→17:57)
[2023-09-11] MEDS: ATORVASTATIN 40 MG TABLET PO SCH ×2 (21:12→21:35)
[2023-09-12 01:28] VITALS: BP 130/75; TEMP 98; O2SAT 98
[2023-09-12 08:00] VITALS: BP 138/90; TEMP 97.5; O2SAT 100
[2023-09-12] MEDS: CARVEDILOL 6.25 MG TABLET PO SCH ×2 (08:21→17:00)
[2023-09-12] MEDS: risperiDONE 1 MG TABLET PO SCH (08:21)
[2023-09-12] MEDS: LOSARTAN POTASSIUM 50 MG TABLET PO SCH (08:22)
[2023-09-12] MEDS: OXYBUTYNIN CHLORIDE 5 MG TABLET PO SCH ×4 (08:22→17:00)
[2023-09-12 16:00] VITALS: BP 142/72; TEMP 98.1; O2SAT 98
[2023-09-12] MEDS: risperiDONE LIQUID 1 MG/ML ML PO SCH (17:00)
[2023-09-12 20:33] VITALS: BP 134/74; TEMP 98.1; O2SAT 100
[2023-09-12] MEDS: ATORVASTATIN 40 MG TABLET PO SCH (22:00)
[2023-09-12] MEDS ORDERED: risperiDONE LIQUID 1 MG/ML ML PO SCH (22:00)
[2023-09-13 08:00] VITALS: BP 139/67; TEMP 97.9; O2SAT 96
[2023-09-13] MEDS: risperiDONE LIQUID 1 MG/ML ML PO SCH ×3 (08:49→21:46)
[2023-09-13] MEDS: OXYBUTYNIN CHLORIDE 5 MG TABLET PO SCH ×3 (08:54→16:06)
[2023-09-13] MEDS: CARVEDILOL 6.25 MG TABLET PO SCH ×2 (08:54→16:07)
[2023-09-13] MEDS: LOSARTAN POTASSIUM 50 MG TABLET PO SCH (08:57)
[2023-09-13 16:00] VITALS: BP 112/63; TEMP 97.7; O2SAT 97
[2023-09-13 20:01] VITALS: BP 119/60; TEMP 97.3; O2SAT 98
[2023-09-13] MEDS: ATORVASTATIN 40 MG TABLET PO SCH (21:45)
[2023-09-14 08:00] VITALS: BP 154/82; TEMP 97.9; O2SAT 96
[2023-09-14] MEDS: OXYBUTYNIN CHLORIDE 5 MG TABLET PO SCH ×3 (08:27→16:16)
[2023-09-14] MEDS: risperiDONE LIQUID 1 MG/ML ML PO SCH ×3 (08:27→21:03)
[2023-09-14] MEDS: CARVEDILOL 6.25 MG TABLET PO SCH ×2 (08:27→16:15)
[2023-09-14] MEDS: LOSARTAN POTASSIUM 50 MG TABLET PO SCH (08:27)
[2023-09-14 16:00] VITALS: BP 152/82; TEMP 98.4; O2SAT 96
[2023-09-14 20:51] VITALS: BP 142/73; TEMP 98.1; O2SAT 97
[2023-09-14] MEDS: ATORVASTATIN 40 MG TABLET PO SCH (21:03)
[2023-09-15 08:00] VITALS: BP 122/60; TEMP 98.6; O2SAT 97
[2023-09-15] MEDS: CARVEDILOL 6.25 MG TABLET PO SCH (08:44)
[2023-09-15] MEDS: risperiDONE LIQUID 1 MG/ML ML PO SCH (08:44)
[2023-09-15] MEDS: LOSARTAN POTASSIUM 50 MG TABLET PO SCH (08:44)
[2023-09-15] MEDS: OXYBUTYNIN CHLORIDE 5 MG TABLET PO SCH ×2 (08:45→12:36)
== END 2023-09-15 13:25 | DRG 885 ==
LOC: ER 21:08 → GPS 09-06 01:46
PROVIDERS: ADMIT Psychiatry & Neurology Psychosomatic Medicine; ATTEND Nurse Practitioner Acute Care
DX: F25.9 Schizoaffective disorder, unspecified (principal); G93.49 Other encephalopathy; F02.83 Dementia in other diseases classified elsewhere, unspecified severity, with mood disturbance; F29 Unspecified psychosis not due to a substance or known physiological condition; K21.9 Gastro-esophageal reflux disease without esophagitis; E78.5 Hyperlipidemia, unspecified; F32.A Depression, unspecified; N32.81 Overactive bladder; Z73.6 Limitation of activities due to disability; Z20.822 Contact with and (suspected) exposure to COVID-19; G30.9 Alzheimer's disease, unspecified; Z79.899 Other long term (current) drug therapy; I10 Essential (primary) hypertension
CPT/HCPCS: 36415; 80048-TC; 80076-TC; 81001; 82962-TC; 85025-TC; 87081-TC; 97110-TC; 97116-TC; 97530-TC; C9803; G0480; J1200; J1630; J2060

== ENCOUNTER 2023-09-21 18:46 | Inpatient (IN) | payer MEDICARE, OTHER ==
[~2023-09-21] VITALS: Ht 154.9 cm; Wt 61.2 kg
[~2023-09-21 18:46] MED LIST changes: -CLON0.1T PO; -ESCI5TAB PO; -OLAN5TAB6 SL; +OXYB5TAB16 PO; +RISP1TAB97 PO; -TOLT4CAP PO
[2023-09-21] MEDS ORDERED: DOCU100T2 PO (19:27)
[2023-09-21] MEDS ORDERED: IBUP-1953 PO (19:27)
[2023-09-21] MEDS ORDERED: TEMA7.5C PO (19:27)
[2023-09-21] MEDS ORDERED: ACET-868 PO (19:27)
[2023-09-21] MEDS ORDERED: NA P133E RC (19:27)
[2023-09-21] MEDS ORDERED: RISP2TAB85 PO (19:27)
[2023-09-21] MEDS ORDERED: CRAN425C6 PO (19:27)
[2023-09-21] MEDS ORDERED: BISA10SU11 RC (19:27)
[2023-09-21] MEDS ORDERED: LORA-258 PO (19:27)
[2023-09-21 20:12] LABS: BASOPHILS % (AUTO) 0.4 % (0.0-2.0); EOSINOPHILS # (AUTO) 0.1 K/uL (0.0-0.7); EOSINOPHILS % (AUTO) 3.1 % (0.0-6.0); HEMATOCRIT 39 % (33-45); HEMOGLOBIN 12.6 g/dL (11.5-14.8); LYMPHOCYTES # (AUTO) 1.7 K/uL (0.8-4.8); LYMPHOCYTES % (AUTO) 37.2 % (20.0-44.0); MEAN CORPUSCULAR HEMOGLOBIN 27 PG (26.0-33.0); MEAN CORPUSCULAR HGB CONC 32 g/dl (31.0-36.0); MEAN CORPUSCULAR VOLUME 84 fL (82-100); MONOCYTES # (AUTO) 0.3 K/uL (0.1-1.30); MONOCYTES % (AUTO) 7.2 % (2.0-12.0); NEUTROPHILS # (AUTO) 2.4 K/uL (1.8-8.9); NEUTROPHILS % (AUTO) 52.1 % (43.0-81.0); PLATELET COUNT (AUTO) 197 K/uL (150-450); RED BLOOD CELL COUNT(AUTO) 4.64 MIL/uL (4.0-5.2); RED CELL DISTRIBUTION WIDTH 14.7 % (11.5-15.0); WHITE BLOOD COUNT (AUTO) 4.6 K/uL (4.3-11.0)
[2023-09-21 20:17] LABS: APPEARANCE,URINE CLEAR (CLEAR); BILIRUBIN,URINE NEGATIVE (NEGATIVE); BLOOD, URINE 1+ Ery/uL (NEGATIVE); COLOR,URINE YELLOW (YELLOW); KETONES,URINE NEGATIVE (NEGATIVE); LEUKOCYTE ESTERASE ,URINE NEGATIVE (NEGATIVE); NITRITE, URINE NEGATIVE (NEGATIVE); PROTEIN,URINE NEGATIVE (NEGATIVE); UGLUCOSE NEGATIVE (NEGATIVE); UROBILINOGEN,URINE 0.2 EU/dL (0.2)
[2023-09-21 20:32] LABS: CALCIUM, SERUM 9.4 mg/dL (8.5-10.1); CARBON DIOXIDE 26 mmol/L (21-32); CHLORIDE 102 mmol/L (98-107); CREATININE 0.7 mg/dL (0.6-1.3); GLUCOSE 94 mg/dL (74-106); POTASSIUM 3.6 mmol/L (3.5-5.1); SODIUM SERUM 138 mmol/L (136-145); UREA NITROGEN, BLOOD 23 mg/dL (7-18)
[2023-09-21 20:34] LABS: AMPHETAMINE, URINE NEGATIVE (NEGATIVE); BARBITURATE, URINE NEGATIVE (NEGATIVE); BENZODIAZEPINE, URINE NEGATIVE (NEGATIVE); CANNABINOID, URINE NEGATIVE (NEGATIVE); COCCAINE, URINE NEGATIVE (NEGATIVE); OPIATE, URINE NEGATIVE (NEGATIVE); PHENCYCLIDINE SCREEN,URINE NEGATIVE (NEGATIVE)
[2023-09-21 20:38] LABS: ALANINE AMINOTRANSFERASE 14 U/L (12-78); ALBUMIN 3.4 g/dL (3.4-5.0); ALCOHOL, BLOOD < 3 mg/dL (0-10); ALKALINE PHOSPHATASE 88 U/L (46-116); ASPARTATE AMINOTRANSFERASE 15 U/L (15-37); BILIRUBIN,DIRECT 0.1 mg/dL (0.0-0.2); BILIRUBIN,TOTAL 0.3 mg/dL (0.2-1.0); TOTAL PROTEIN, SERUM 8.5 g/dL (6.4-8.2)
[2023-09-21 20:39] LABS: SALICYLATE 0.7 mg/dL (2.8-20.0)
[2023-09-21 20:39] LABS: ADD URINE CULTURE NO; BACTERIA,URINE None seen /HPF (None Seen); SQUAMOUS EPITHELIAL CELL,UR None Seen /HPF (None Seen); WBC,URINE NONE SEEN /HPF (0-3)
[2023-09-21 20:40] LABS: ACETAMINOPHEN 0 ug/ml (10-30)
[2023-09-22 02:30] VITALS: BP 143/77; TEMP 98; O2SAT 98
[2023-09-22] MEDS ORDERED: ACETAMINOPHEN 325 MG TABLET PO PRN (02:30)
[2023-09-22] MEDS ORDERED: MAGNESIUM HYDROXIDE 30 ML UDC PO PRN (02:30)
[2023-09-22] MEDS ORDERED: BLOOD SUGAR DIAGNOSTIC 1 EACH STRIP IN ONE (02:30)
[2023-09-22] MEDS ORDERED: MAG HYDROX/AL HYDROX/SIMETH 30 ML UDC PO PRN (02:30)
[2023-09-22] MEDS ORDERED: TEMAZEPAM 7.5 MG CAPSULE PO PRN (02:30)
[2023-09-22 08:00] VITALS: BP 127/62; TEMP 98.6; O2SAT 99
[2023-09-22] MEDS: LORAZEPAM 0.5 MG TABLET PO PRN ×2 (10:00→21:02)
[2023-09-22 16:00] VITALS: BP 135/72; TEMP 98.9; O2SAT 98
[2023-09-22] MEDS: risperiDONE LIQUID 1 MG/ML ML PO SCH ×2 (17:05→21:02)
[2023-09-22 20:00] VITALS: BP 106/51; TEMP 98.4; O2SAT 98
[2023-09-23 08:00] VITALS: BP 132/75; TEMP 97.7; O2SAT 98
[2023-09-23] MEDS: risperiDONE LIQUID 1 MG/ML ML PO SCH ×3 (08:00→21:55)
[2023-09-23] MEDS ORDERED: BISACODYL SUPP (10 MG) 10 MG/SUPP.RECT SUPP.RECT RC PRN (11:00)
[2023-09-23] MEDS: OXYBUTYNIN CHLORIDE 5 MG TABLET PO SCH ×2 (13:29→17:00)
[2023-09-23 16:00] VITALS: BP 104/59; TEMP 98; O2SAT 98
[2023-09-23] MEDS: CARVEDILOL 6.25 MG TABLET PO SCH (17:00)
[2023-09-23 20:12] VITALS: BP 141/86; TEMP 98; O2SAT 98
[2023-09-23] MEDS: ATORVASTATIN 40 MG TABLET PO SCH (21:55)
[2023-09-24 08:00] VITALS: BP 128/79; TEMP 98.6; O2SAT 96
[2023-09-24] MEDS: OXYBUTYNIN CHLORIDE 5 MG TABLET PO SCH ×3 (08:22→17:00)
[2023-09-24] MEDS: risperiDONE LIQUID 1 MG/ML ML PO SCH ×3 (08:22→21:34)
[2023-09-24] MEDS: LOSARTAN POTASSIUM 50 MG TABLET PO SCH (09:00)
[2023-09-24] MEDS: CARVEDILOL 6.25 MG TABLET PO SCH ×2 (09:00→17:00)
[2023-09-24 16:00] VITALS: BP 126/65; TEMP 98.1; O2SAT 99
[2023-09-24 20:00] VITALS: BP 149/81; TEMP 98.4; O2SAT 99
[2023-09-24] MEDS: ATORVASTATIN 40 MG TABLET PO SCH (21:28)
[2023-09-25] MEDS ORDERED: Z GUARD REMEDY 4 OZ OINT TP PRN
[2023-09-25 08:00] VITALS: BP 141/78; TEMP 98; O2SAT 98
[2023-09-25] MEDS: risperiDONE LIQUID 1 MG/ML ML PO SCH ×5 (08:00→21:59)
[2023-09-25] MEDS: OXYBUTYNIN CHLORIDE 5 MG TABLET PO SCH ×4 (08:37→16:44)
[2023-09-25] MEDS: CARVEDILOL 6.25 MG TABLET PO SCH ×3 (08:38→16:41)
[2023-09-25] MEDS: LOSARTAN POTASSIUM 50 MG TABLET PO SCH (08:39)
[2023-09-25 16:00] VITALS: BP 145/99; TEMP 97.9; O2SAT 97
[2023-09-25 21:08] VITALS: BP 131/91; TEMP 98.1; O2SAT 98
[2023-09-25] MEDS: ATORVASTATIN 40 MG TABLET PO SCH (21:59)
[2023-09-26 08:00] VITALS: BP 136/93; TEMP 97.9; O2SAT 99
[2023-09-26] MEDS: risperiDONE LIQUID 1 MG/ML ML PO SCH ×4 (08:00→21:32)
[2023-09-26] MEDS: OXYBUTYNIN CHLORIDE 5 MG TABLET PO SCH ×4 (09:00→15:58)
[2023-09-26] MEDS: CARVEDILOL 6.25 MG TABLET PO SCH ×2 (09:00→15:58)
[2023-09-26] MEDS: LOSARTAN POTASSIUM 50 MG TABLET PO SCH (09:00)
[2023-09-26] MEDS: LORAZEPAM 0.5 MG TABLET PO PRN (09:49)
[2023-09-26 16:00] VITALS: BP 146/70; TEMP 98.2; O2SAT 98
[2023-09-26 19:36] VITALS: BP 152/63; TEMP 98.2; O2SAT 97
[2023-09-26] MEDS: ATORVASTATIN 40 MG TABLET PO SCH (21:32)
[2023-09-27 08:00] VITALS: BP 158/88; TEMP 98.7; O2SAT 98
[2023-09-27] MEDS: OXYBUTYNIN CHLORIDE 5 MG TABLET PO SCH ×3 (08:11→16:25)
[2023-09-27] MEDS: risperiDONE LIQUID 1 MG/ML ML PO SCH ×3 (08:12→21:34)
[2023-09-27] MEDS: LOSARTAN POTASSIUM 50 MG TABLET PO SCH (08:12)
[2023-09-27] MEDS: CARVEDILOL 6.25 MG TABLET PO SCH ×2 (08:12→16:25)
[2023-09-27 16:00] VITALS: BP 117/64; TEMP 98.7; O2SAT 99
[2023-09-27] MEDS ORDERED: OLANZAPINE 10 MG VIAL IM PRN (17:30)
[2023-09-27 21:18] VITALS: BP 105/67; TEMP 98.2; O2SAT 100
[2023-09-27] MEDS: ATORVASTATIN 40 MG TABLET PO SCH ×2 (21:34→21:37)
[2023-09-28 08:00] VITALS: BP 128/65; TEMP 98.6; O2SAT 100
[2023-09-28] MEDS: risperiDONE LIQUID 1 MG/ML ML PO SCH ×3 (08:26→21:23)
[2023-09-28] MEDS: CARVEDILOL 6.25 MG TABLET PO SCH ×2 (08:28→16:03)
[2023-09-28] MEDS: OXYBUTYNIN CHLORIDE 5 MG TABLET PO SCH ×4 (08:29→16:13)
[2023-09-28] MEDS: LOSARTAN POTASSIUM 50 MG TABLET PO SCH (08:29)
[2023-09-28 16:00] VITALS: BP 116/50; TEMP 98.4; O2SAT 99
[2023-09-28 20:18] VITALS: BP 141/79; TEMP 97.9; O2SAT 100
[2023-09-28] MEDS: ATORVASTATIN 40 MG TABLET PO SCH (21:23)
[2023-09-29 08:00] VITALS: BP 159/79; TEMP 98.2; O2SAT 97
[2023-09-29] MEDS: risperiDONE LIQUID 1 MG/ML ML PO SCH ×3 (08:32→22:08)
[2023-09-29] MEDS: OXYBUTYNIN CHLORIDE 5 MG TABLET PO SCH ×3 (08:33→16:25)
[2023-09-29] MEDS: CARVEDILOL 6.25 MG TABLET PO SCH ×2 (08:38→16:25)
[2023-09-29] MEDS: LOSARTAN POTASSIUM 50 MG TABLET PO SCH (08:39)
[2023-09-29] MEDS: LORAZEPAM 0.5 MG TABLET PO PRN (08:40)
[2023-09-29 16:00] VITALS: BP 115/68; TEMP 97.7; O2SAT 100
[2023-09-29 20:00] VITALS: BP 125/61; TEMP 97.9; O2SAT 100
[2023-09-29] MEDS: ATORVASTATIN 40 MG TABLET PO SCH (22:07)
[2023-09-30 08:00] VITALS: BP 124/83; TEMP 98.1; O2SAT 100
[2023-09-30] MEDS: risperiDONE LIQUID 1 MG/ML ML PO SCH ×3 (08:29→22:49)
[2023-09-30] MEDS: CARVEDILOL 6.25 MG TABLET PO SCH ×2 (08:30→16:25)
[2023-09-30] MEDS: OXYBUTYNIN CHLORIDE 5 MG TABLET PO SCH ×3 (08:30→16:24)
[2023-09-30] MEDS: LOSARTAN POTASSIUM 50 MG TABLET PO SCH (08:30)
[2023-09-30 16:00] VITALS: BP 127/60; TEMP 97.6; O2SAT 97
[2023-09-30 20:00] VITALS: BP 126/81; TEMP 98.2; O2SAT 97
[2023-09-30] MEDS: ATORVASTATIN 40 MG TABLET PO SCH (22:49)
[2023-10-01 08:00] VITALS: BP 129/64; TEMP 98.6; O2SAT 96
[2023-10-01] MEDS: OXYBUTYNIN CHLORIDE 5 MG TABLET PO SCH ×3 (08:20→16:47)
[2023-10-01] MEDS: LOSARTAN POTASSIUM 50 MG TABLET PO SCH (08:20)
[2023-10-01] MEDS: CARVEDILOL 6.25 MG TABLET PO SCH ×2 (08:21→16:46)
[2023-10-01] MEDS: risperiDONE LIQUID 1 MG/ML ML PO SCH ×3 (08:22→21:34)
[2023-10-01 16:00] VITALS: BP 99/50; TEMP 98.9; O2SAT 97
[2023-10-01 18:21] LABS: APPEARANCE,URINE CLEAR (CLEAR); BILIRUBIN,URINE NEGATIVE (NEGATIVE); BLOOD, URINE NEGATIVE Ery/uL (NEGATIVE); COLOR,URINE YELLOW (YELLOW); KETONES,URINE NEGATIVE (NEGATIVE); LEUKOCYTE ESTERASE ,URINE TRACE (NEGATIVE); NITRITE, URINE NEGATIVE (NEGATIVE); PROTEIN,URINE NEGATIVE (NEGATIVE); UGLUCOSE NEGATIVE (NEGATIVE); UROBILINOGEN,URINE 0.2 EU/dL (0.2)
[2023-10-01 18:56] LABS: ADD URINE CULTURE NO; BACTERIA,URINE None seen /HPF (None Seen); RBC,URINE NONE SEEN /HPF (0-2)
[2023-10-01 20:00] VITALS: BP 121/66; TEMP 98.2; O2SAT 97
[2023-10-01] MEDS: ATORVASTATIN 40 MG TABLET PO SCH (21:32)
[2023-10-02 08:00] VITALS: BP 124/55; TEMP 98.1; O2SAT 98
[2023-10-02] MEDS: CARVEDILOL 6.25 MG TABLET PO SCH ×3 (08:34→16:53)
[2023-10-02] MEDS: LOSARTAN POTASSIUM 50 MG TABLET PO SCH (08:34)
[2023-10-02] MEDS: OXYBUTYNIN CHLORIDE 5 MG TABLET PO SCH ×4 (08:34→16:53)
[2023-10-02] MEDS: risperiDONE LIQUID 1 MG/ML ML PO SCH ×3 (08:37→21:05)
[2023-10-02 16:00] VITALS: BP 128/76; TEMP 98.6; O2SAT 96
[2023-10-02 20:45] VITALS: BP 150/69; TEMP 98.3; O2SAT 98
[2023-10-02] MEDS: ATORVASTATIN 40 MG TABLET PO SCH (21:05)
[2023-10-03 07:52] LABS: BASOPHILS % (AUTO) 0.5 % (0.0-2.0); EOSINOPHILS # (AUTO) 0.1 K/uL (0.0-0.7); EOSINOPHILS % (AUTO) 3.5 % (0.0-6.0); HEMATOCRIT 30 % (33-45); HEMOGLOBIN 10.3 g/dL (11.5-14.8); LYMPHOCYTES # (AUTO) 1.5 K/uL (0.8-4.8); LYMPHOCYTES % (AUTO) 37.7 % (20.0-44.0); MEAN CORPUSCULAR HEMOGLOBIN 28 PG (26.0-33.0); MEAN CORPUSCULAR HGB CONC 35 g/dl (31.0-36.0); MEAN CORPUSCULAR VOLUME 82 fL (82-100); MONOCYTES # (AUTO) 0.3 K/uL (0.1-1.30); MONOCYTES % (AUTO) 8.2 % (2.0-12.0); NEUTROPHILS % (AUTO) 50.1 % (43.0-81.0); PLATELET COUNT (AUTO) 162 K/uL (150-450); RED BLOOD CELL COUNT(AUTO) 3.66 MIL/uL (4.0-5.2); RED CELL DISTRIBUTION WIDTH 13.6 % (11.5-15.0); WHITE BLOOD COUNT (AUTO) 3.9 K/uL (4.3-11.0)
[2023-10-03 08:00] VITALS: BP 129/70; TEMP 98.7; O2SAT 97
[2023-10-03] MEDS: LOSARTAN POTASSIUM 50 MG TABLET PO SCH (08:25)
[2023-10-03] MEDS: CARVEDILOL 6.25 MG TABLET PO SCH ×2 (08:25→17:45)
[2023-10-03] MEDS: OXYBUTYNIN CHLORIDE 5 MG TABLET PO SCH ×3 (08:25→17:45)
[2023-10-03] MEDS: risperiDONE LIQUID 1 MG/ML ML PO SCH ×3 (08:29→21:16)
[2023-10-03 08:44] LABS: ALANINE AMINOTRANSFERASE 13 U/L (12-78); ALBUMIN 2.7 g/dL (3.4-5.0); ALKALINE PHOSPHATASE 76 U/L (46-116); ASPARTATE AMINOTRANSFERASE 14 U/L (15-37); BILIRUBIN,TOTAL 0.5 mg/dL (0.2-1.0); CALCIUM, SERUM 8.8 mg/dL (8.5-10.1); CARBON DIOXIDE 27 mmol/L (21-32); CHLORIDE 105 mmol/L (98-107); CREATININE 0.6 mg/dL (0.6-1.3); GLUCOSE 94 mg/dL (74-106); POTASSIUM 3.5 mmol/L (3.5-5.1); SODIUM SERUM 138 mmol/L (136-145); TOTAL PROTEIN, SERUM 6.9 g/dL (6.4-8.2); UREA NITROGEN, BLOOD 14 mg/dL (7-18)
[2023-10-03 16:00] VITALS: BP 116/64; TEMP 98.1; O2SAT 100
[2023-10-03 20:37] VITALS: BP 127/62; TEMP 97.5; O2SAT 98
[2023-10-03] MEDS: ATORVASTATIN 40 MG TABLET PO SCH (21:16)
[2023-10-04 08:00] VITALS: BP 110/58; TEMP 98.7; O2SAT 96
[2023-10-04] MEDS: CARVEDILOL 6.25 MG TABLET PO SCH ×2 (08:47→16:31)
[2023-10-04] MEDS: LOSARTAN POTASSIUM 50 MG TABLET PO SCH (08:47)
[2023-10-04] MEDS: OXYBUTYNIN CHLORIDE 5 MG TABLET PO SCH ×3 (08:47→16:32)
[2023-10-04] MEDS: risperiDONE LIQUID 1 MG/ML ML PO SCH ×3 (09:25→21:06)
[2023-10-04 16:00] VITALS: BP 115/59; TEMP 98.9; O2SAT 100
[2023-10-04 19:58] VITALS: BP 109/87; TEMP 98.2; O2SAT 98
[2023-10-04] MEDS: ATORVASTATIN 40 MG TABLET PO SCH (21:06)
[2023-10-05 08:00] VITALS: BP 118/52; TEMP 98.6; O2SAT 99
[2023-10-05] MEDS: OXYBUTYNIN CHLORIDE 5 MG TABLET PO SCH (08:01)
[2023-10-05] MEDS: CARVEDILOL 6.25 MG TABLET PO SCH (08:03)
[2023-10-05] MEDS: risperiDONE LIQUID 1 MG/ML ML PO SCH (08:05)
[2023-10-05] MEDS ORDERED: LOSARTAN POTASSIUM 50 MG TABLET PO SCH (09:00)
== END 2023-10-05 12:05 | DRG 885 ==
LOC: ER 18:53 → GPS 09-22 01:11
PROVIDERS: ADMIT Psychiatry & Neurology Psychosomatic Medicine; ATTEND Internal Medicine
DX: F25.9 Schizoaffective disorder, unspecified (principal); I11.0 Hypertensive heart disease with heart failure; G93.49 Other encephalopathy; F02.82 Dementia in other diseases classified elsewhere, unspecified severity, with psychotic disturbance; F02.83 Dementia in other diseases classified elsewhere, unspecified severity, with mood disturbance; F29 Unspecified psychosis not due to a substance or known physiological condition; I50.9 Heart failure, unspecified; K21.9 Gastro-esophageal reflux disease without esophagitis; E78.5 Hyperlipidemia, unspecified; F32.A Depression, unspecified; Z79.899 Other long term (current) drug therapy; F60.3 Borderline personality disorder; N32.81 Overactive bladder; Z73.6 Limitation of activities due to disability; Z20.822 Contact with and (suspected) exposure to COVID-19; G30.9 Alzheimer's disease, unspecified
CPT/HCPCS: 36415; 71045-TC; 80048-TC; 80053-TC; 80076-TC; 81001; 82962-TC; 85025-TC; 87081-TC; 87086-TC; G0480

== ENCOUNTER 2023-10-28 00:03 | Emergency (ER) | payer MEDICARE, OTHER ==
[~2023-10-28] VITALS: Ht 170.2 cm; Wt 65.8 kg
[~2023-10-28 00:03] MED LIST changes: +ACET-868 PO; +BISA10SU11 RC; +CRAN425C6 PO; +DOCU100T2 PO; +IBUP-1953 PO; +LORA-258 PO; +NA P133E RC; +RISP2TAB85 PO; +TEMA7.5C PO
[2023-10-28 02:10] VITALS: BP 158/88; TEMP 98.2; O2SAT 98
== END 2023-10-28 02:11 ==
LOC: ER 00:18
DX: S62.327A Displaced fracture of shaft of fifth metacarpal bone, left hand, initial encounter for closed fracture (principal); F03.90 Unspecified dementia, unspecified severity, without behavioral disturbance, psychotic disturbance, mood disturbance, and anxiety; I11.0 Hypertensive heart disease with heart failure; I50.9 Heart failure, unspecified; E78.5 Hyperlipidemia, unspecified; K21.9 Gastro-esophageal reflux disease without esophagitis; F41.9 Anxiety disorder, unspecified; G47.00 Insomnia, unspecified; F32.9 Major depressive disorder, single episode, unspecified; Z88.8 Allergy status to other drugs, medicaments and biological substances; Z79.899 Other long term (current) drug therapy; X58.XXXA Exposure to other specified factors, initial encounter; Y93.89 Activity, other specified; Y92.89 Other specified places as the place of occurrence of the external cause; Y99.8 Other external cause status
CPT/HCPCS: 73130-TC

== ENCOUNTER 2024-12-08 15:38 | Inpatient (IN) | payer MEDICARE, OTHER ==
[~2024-12-08] VITALS: Ht 157.5 cm; Wt 57.6 kg
[2024-12-08] MEDS ORDERED: ACETAMINOPHEN 325 MG TABLET ONE (16:01)
[2024-12-08] MEDS: ACETAMINOPHEN 325 MG TABLET PO ONE (16:11)
[2024-12-08 16:34] LABS: CALCIUM, SERUM 9.6 mg/dL (8.5-10.1); CARBON DIOXIDE 27 mmol/L (21-32); CHLORIDE 100 mmol/L (98-107); CREATININE 0.6 mg/dL (0.6-1.3); GLUCOSE 126 mg/dL (74-106); POTASSIUM 3.9 mmol/L (3.5-5.1); SODIUM SERUM 136 mmol/L (136-145); UREA NITROGEN, BLOOD 20 mg/dL (7-18)
[2024-12-08 16:40] LABS: BASOPHILS % (AUTO) 0.1 % (0.0-2.0); HEMATOCRIT 39 % (33-45); HEMOGLOBIN 12.8 g/dL (11.5-14.8); LYMPHOCYTES # (AUTO) 0.9 K/uL (0.8-4.8); LYMPHOCYTES % (AUTO) 14.9 % (20.0-44.0); MEAN CORPUSCULAR HEMOGLOBIN 27 PG (26.0-33.0); MEAN CORPUSCULAR HGB CONC 33 g/dl (31.0-36.0); MEAN CORPUSCULAR VOLUME 82 fL (82-100); MONOCYTES # (AUTO) 0.4 K/uL (0.1-1.30); MONOCYTES % (AUTO) 6.6 % (2.0-12.0); NEUTROPHILS # (AUTO) 4.6 K/uL (1.8-8.9); NEUTROPHILS % (AUTO) 78.4 % (43.0-81.0); PLATELET COUNT (AUTO) 217 K/uL (150-450); RED BLOOD CELL COUNT(AUTO) 4.73 MIL/uL (4.0-5.2); RED CELL DISTRIBUTION WIDTH 14.8 % (11.5-15.0); WHITE BLOOD COUNT (AUTO) 5.9 K/uL (4.3-11.0)
[2024-12-08 16:43] LABS: ALANINE AMINOTRANSFERASE 17 U/L (12-78); ALBUMIN 3.6 g/dL (3.4-5.0); ALKALINE PHOSPHATASE 83 U/L (46-116); ASPARTATE AMINOTRANSFERASE 25 U/L (15-37); BILIRUBIN,DIRECT 0.1 mg/dL (0.0-0.2); BILIRUBIN,TOTAL 0.7 mg/dL (0.2-1.0); INR 1.06 (0.91-1.10); PARTIAL THROMBOPLASTIN TIME 28.9 SEC (24.3-34.3); PROTHROMBIN TIME 11.2 SECS (9.2-11.1); TOTAL PROTEIN, SERUM 9.5 g/dL (6.4-8.2)
[2024-12-08 16:48] LABS: THYROID STIMULATING HORMONE 6.56 uIU/mL (0.358-3.74)
[2024-12-08] MEDS ORDERED: FAMO20TA80 PO (17:22)
[2024-12-08] MEDS ORDERED: EPIN0.3A4 IM (17:22)
[2024-12-08] MEDS ORDERED: DIVA125T32 PO (17:22)
[2024-12-08] MEDS ORDERED: MIRT-90 PO (17:22)
[2024-12-08] MEDS ORDERED: ACET-868 PO (17:22)
[2024-12-08] MEDS ORDERED: MAGN400O6 PO (17:22)
[2024-12-08] MEDS ORDERED: OLAN5TAB3 PO (17:22)
[2024-12-08] MEDS ORDERED: CELE100C PO (17:22)
[2024-12-08] MEDS ORDERED: MAG30ORA PO (17:22)
[2024-12-08] MEDS ORDERED: MULT-594 PO (17:22)
[2024-12-08] MEDS ORDERED: PSYL1PAC8 PO (17:22)
[2024-12-08] MEDS ORDERED: OLAN7.5T3 PO (17:22)
[2024-12-08] MEDS: MORPHINE SULFATE INJ 2 MG/ML DISP.SYRIN IV ONE ×2 (17:30→18:30)
[2024-12-08] MEDS: ONDANSETRON HCL/PF 4 MG/2 ML VIAL IV ONE (17:30)
[2024-12-08] MEDS ORDERED: ONDANSETRON HCL/PF 4 MG/2 ML VIAL ONE (17:48)
[2024-12-08] MEDS ORDERED: MORPHINE SULFATE INJ 2 MG/ML DISP.SYRIN ONE ×3 (17:49→18:51)
[2024-12-08] MEDS ORDERED: LABETALOL 20 MG/4 ML VIAL ONE (18:51)
[2024-12-08] MEDS: LABETALOL 20 MG/4 ML VIAL IV ONE (19:00)
[2024-12-08] MEDS: MORPHINE SULFATE INJ 4 MG/ML DISP.SYRIN IV ONE (19:00)
[2024-12-08 21:25] VITALS: BP 184/114; TEMP 97.3; O2SAT 96
[2024-12-08] MEDS ORDERED: BISACODYL SUPP (10 MG) 10 MG/SUPP.RECT SUPP.RECT RC PRN (22:00)
[2024-12-08] MEDS ORDERED: MAG HYDROX/AL HYDROX/SIMETH 30 ML UDC PO PRN (22:00)
[2024-12-08] MEDS ORDERED: ONDANSETRON HCL/PF 4 MG/2 ML VIAL IVP PRN (22:00)
[2024-12-08 22:23] VITALS: BP 108/84
[2024-12-08] MEDS: OLANZAPINE 5 MG TABLET PO SCH (22:38)
[2024-12-08] MEDS: DIVALPROEX SODIUM 125 MG TABLET.DR PO SCH (22:38)
[2024-12-08] MEDS: ENOXAPARIN SODIUM 40 MG/0.4 ML DISP.SYRIN SQ SCH (22:40)
[2024-12-08] MEDS: HYDROCODONE/APAP 5/325MG TABLET PO PRN (22:41)
[2024-12-08] MEDS: ATORVASTATIN 10 MG TABLET PO SCH (22:42)
[2024-12-08] MEDS: CARVEDILOL 6.25 MG TABLET PO SCH (22:42)
[2024-12-08] MEDS: MIRTAZAPINE 15 MG TABLET PO SCH (22:49)
[2024-12-09 05:14] VITALS: BP 156/93; TEMP 97.5; O2SAT 97
[2024-12-09 07:00] VITALS: BP 180/76; TEMP 97.5; O2SAT 96
[2024-12-09 07:28] LABS: BASOPHILS % (AUTO) 0.1 % (0.0-2.0); EOSINOPHILS % (AUTO) 0.2 % (0.0-6.0); HEMATOCRIT 36 % (33-45); HEMOGLOBIN 12.1 g/dL (11.5-14.8); LYMPHOCYTES # (AUTO) 1.1 K/uL (0.8-4.8); LYMPHOCYTES % (AUTO) 16.5 % (20.0-44.0); MEAN CORPUSCULAR HEMOGLOBIN 28 PG (26.0-33.0); MEAN CORPUSCULAR HGB CONC 34 g/dl (31.0-36.0); MEAN CORPUSCULAR VOLUME 81 fL (82-100); MONOCYTES # (AUTO) 0.6 K/uL (0.1-1.30); MONOCYTES % (AUTO) 9.7 % (2.0-12.0); NEUTROPHILS # (AUTO) 4.7 K/uL (1.8-8.9); NEUTROPHILS % (AUTO) 73.5 % (43.0-81.0); PLATELET COUNT (AUTO) 223 K/uL (150-450); RED BLOOD CELL COUNT(AUTO) 4.38 MIL/uL (4.0-5.2); RED CELL DISTRIBUTION WIDTH 14.8 % (11.5-15.0); WHITE BLOOD COUNT (AUTO) 6.4 K/uL (4.3-11.0)
[2024-12-09 07:34] LABS: CALCIUM, SERUM 9.4 mg/dL (8.5-10.1); CARBON DIOXIDE 29 mmol/L (21-32); CHLORIDE 101 mmol/L (98-107); CREATININE 0.5 mg/dL (0.6-1.3); GLUCOSE 127 mg/dL (74-106); MAGNESIUM 2.1 mg/dL (1.8-2.4); PHOSPHORUS 3.4 mg/dL (2.5-4.9); POTASSIUM 3.7 mmol/L (3.5-5.1); SODIUM SERUM 139 mmol/L (136-145); UREA NITROGEN, BLOOD 19 mg/dL (7-18)
[2024-12-09] MEDS: DOCUSATE SODIUM 100 MG CAPSULE PO SCH (08:33)
[2024-12-09] MEDS: FAMOTIDINE (20 MG) 20 MG TABLET PO SCH (08:33)
[2024-12-09] MEDS: OXYBUTYNIN CHLORIDE 5 MG TABLET PO SCH (08:33)
[2024-12-09] MEDS: MULTIVIT W/MINERALS 1 TAB TABLET PO SCH (08:33)
[2024-12-09] MEDS: ASPIRIN 81 MG TAB.CHEW PO SCH (08:33)
[2024-12-09] MEDS: OLANZAPINE 5 MG TABLET PO SCH (08:33)
[2024-12-09] MEDS: CELECOXIB 100 MG CAPSULE PO SCH (08:34)
[2024-12-09] MEDS: PSYLLIUM SEED 1 PKT PACKET PO SCH (08:35)
[2024-12-09] MEDS: VALSARTAN 80 MG TABLET PO SCH (09:13)
[2024-12-09 12:00] VITALS: BP 130/64; TEMP 97.7; O2SAT 95
[2024-12-09 16:00] VITALS: BP 129/63; TEMP 97.9; O2SAT 96
[2024-12-09 20:00] VITALS: BP 156/73; TEMP 97.5; O2SAT 95
[2024-12-09 22:00] VITALS: BP 156/73; TEMP 97.5; O2SAT 96
[2024-12-10] VITALS (7 sets, daily range): BP systolic 106–155; BP diastolic 58–79; TEMP 97.3–99; O2SAT 95–98
[2024-12-10 06:53] LABS: BASOPHILS % (AUTO) 0.1 % (0.0-2.0); EOSINOPHILS % (AUTO) 0.1 % (0.0-6.0); HEMATOCRIT 34 % (33-45); HEMOGLOBIN 11.5 g/dL (11.5-14.8); LYMPHOCYTES # (AUTO) 1.6 K/uL (0.8-4.8); LYMPHOCYTES % (AUTO) 25.9 % (20.0-44.0); MEAN CORPUSCULAR HEMOGLOBIN 27 PG (26.0-33.0); MEAN CORPUSCULAR HGB CONC 34 g/dl (31.0-36.0); MEAN CORPUSCULAR VOLUME 81 fL (82-100); MONOCYTES # (AUTO) 0.8 K/uL (0.1-1.30); MONOCYTES % (AUTO) 12.1 % (2.0-12.0); NEUTROPHILS # (AUTO) 3.9 K/uL (1.8-8.9); NEUTROPHILS % (AUTO) 61.8 % (43.0-81.0); PLATELET COUNT (AUTO) 225 K/uL (150-450); WHITE BLOOD COUNT (AUTO) 6.3 K/uL (4.3-11.0)
[2024-12-10] MEDS ORDERED: ANESTHESIA TRAY IN PYXIS 1 EA TRAY MC ONE (06:54)
[2024-12-10 07:13] LABS: INR 1.03 (0.91-1.10); PARTIAL THROMBOPLASTIN TIME 30.2 SEC (24.3-34.3); PROTHROMBIN TIME 10.9 SECS (9.2-11.1)
[2024-12-10 07:19] LABS: CALCIUM, SERUM 9.3 mg/dL (8.5-10.1); CREATININE 0.6 mg/dL (0.6-1.3); POTASSIUM 3.4 mmol/L (3.5-5.1)
[2024-12-10] MEDS ORDERED: FENTANYL PF 100MCG/2ML AMPUL ONE (07:19)
[2024-12-10] MEDS ORDERED: ACETAMINOPHEN 325 MG TABLET ONE (07:42)
[2024-12-10] MEDS ORDERED: ACETAMINOPHEN 325 MG TABLET PO PRN (08:00)
[2024-12-10] MEDS ORDERED: LABETALOL 20 MG/4 ML VIAL IV PRN (08:30)
[2024-12-10] MEDS ORDERED: hydrALAZINE HCL IV 20 MG VIAL ONE (08:31)
[2024-12-10] MEDS ORDERED: ROPIVACAINE HCL 0.5% 5 MG/ML 30ML VIAL ONE (08:40)
[2024-12-10] MEDS ORDERED: LIDOCAINE 2% 50 ML MDV IJ ONE (08:40)
[2024-12-10] MEDS: hydrALAZINE HCL IV 20 MG VIAL IV PRN (08:53)
[2024-12-10] MEDS: POTASSIUM CL. PREMIX PERIPHER. 50 ML IV SCH (09:47)
[2024-12-10] MEDS: POTASSIUM CHLORIDE 20 MEQ TAB.PRT.SR PO ONE (10:33)
[2024-12-11 08:00] VITALS: BP 159/74; TEMP 97.5; O2SAT 96
[2024-12-11 16:00] VITALS: BP 137/45; TEMP 98.1; O2SAT 97
[2024-12-11 18:36] LABS: BASOPHILS % (AUTO) 0.2 % (0.0-2.0); EOSINOPHILS # (AUTO) 0.1 K/uL (0.0-0.7); HEMATOCRIT 34 % (33-45); HEMOGLOBIN 11.5 g/dL (11.5-14.8); LYMPHOCYTES # (AUTO) 1.6 K/uL (0.8-4.8); LYMPHOCYTES % (AUTO) 26.1 % (20.0-44.0); MEAN CORPUSCULAR HEMOGLOBIN 28 PG (26.0-33.0); MEAN CORPUSCULAR HGB CONC 34 g/dl (31.0-36.0); MEAN CORPUSCULAR VOLUME 82 fL (82-100); MONOCYTES # (AUTO) 0.6 K/uL (0.1-1.30); MONOCYTES % (AUTO) 9.6 % (2.0-12.0); NEUTROPHILS # (AUTO) 3.8 K/uL (1.8-8.9); NEUTROPHILS % (AUTO) 63.1 % (43.0-81.0); PLATELET COUNT (AUTO) 246 K/uL (150-450); RED BLOOD CELL COUNT(AUTO) 4.16 MIL/uL (4.0-5.2); RED CELL DISTRIBUTION WIDTH 15.1 % (11.5-15.0); WHITE BLOOD COUNT (AUTO) 6.1 K/uL (4.3-11.0)
[2024-12-11 19:30] LABS: CALCIUM, SERUM 9.3 mg/dL (8.5-10.1); CREATININE 0.7 mg/dL (0.6-1.3); POTASSIUM 3.7 mmol/L (3.5-5.1)
[2024-12-11 20:00] VITALS: BP 126/56; TEMP 99.7; O2SAT 95
[2024-12-11 21:00] VITALS: BP 125/56; TEMP 99.7; O2SAT 95
[2024-12-11 21:35] VITALS: TEMP 98.7; O2SAT 97
[2024-12-12] MEDS ORDERED: FENTANYL PF 100MCG/2ML AMPUL ONE (07:02)
[2024-12-12] MEDS ORDERED: MIDAZOLAM HCL 2 MG/2ML VIAL ONE (07:02)
[2024-12-12] MEDS ORDERED: BUPIVACAINE 0.5 % PF 150 MG/30 ML VIAL ONE ×2 (07:08→07:11)
[2024-12-12] MEDS ORDERED: LIDOCAINE 2%-EPI 1:100,000 30 ML VIAL ONE (07:10)
[2024-12-12] MEDS ORDERED: ROPIVACAINE HCL 0.5% 5 MG/ML 30ML VIAL ONE (07:10)
[2024-12-12] MEDS ORDERED: TRANEXAMIC ACID 1,000 MG/10 ML VIAL ONE ×2 (07:54)
[2024-12-12 11:30] VITALS: BP 100/49; TEMP 97.3; O2SAT 96
[2024-12-12] MEDS: CEFAZOLIN 2 GM in IV D5W 100 ML IV SCH (15:46)
[2024-12-12 16:00] VITALS: BP 98/47; TEMP 97.7; O2SAT 97
[2024-12-12 20:00] VITALS: BP 113/55; TEMP 97.7; O2SAT 95
[2024-12-12] MEDS: ACETAMINOPHEN 325 MG TABLET PO PRN (21:55)
[2024-12-13 06:39] LABS: BASOPHILS % (AUTO) 0.1 % (0.0-2.0); EOSINOPHILS % (AUTO) 0.2 % (0.0-6.0); HEMATOCRIT 27 % (33-45); LYMPHOCYTES # (AUTO) 1.1 K/uL (0.8-4.8); LYMPHOCYTES % (AUTO) 15.5 % (20.0-44.0); MEAN CORPUSCULAR HEMOGLOBIN 27 PG (26.0-33.0); MEAN CORPUSCULAR HGB CONC 33 g/dl (31.0-36.0); MEAN CORPUSCULAR VOLUME 81 fL (82-100); MONOCYTES # (AUTO) 0.7 K/uL (0.1-1.30); MONOCYTES % (AUTO) 10.2 % (2.0-12.0); NEUTROPHILS # (AUTO) 5.2 K/uL (1.8-8.9); PLATELET COUNT (AUTO) 192 K/uL (150-450); RED BLOOD CELL COUNT(AUTO) 3.29 MIL/uL (4.0-5.2); RED CELL DISTRIBUTION WIDTH 14.8 % (11.5-15.0)
[2024-12-13 06:55] LABS: CALCIUM, SERUM 8.3 mg/dL (8.5-10.1); CREATININE 0.5 mg/dL (0.6-1.3); POTASSIUM 3.5 mmol/L (3.5-5.1)
[2024-12-13 20:00] VITALS: BP 117/81; TEMP 97.8; O2SAT 96
[2024-12-14 08:00] VITALS: BP 90/82; TEMP 97.5; O2SAT 100
[2024-12-14 17:39] VITALS: BP 139/87; TEMP 97.7; O2SAT 95
== END 2024-12-14 19:00 | DRG 492 ==
LOC: ER 15:47 → TELE1 18:26 → TELE 20:09 → MED 12-10 10:12
PROVIDERS: ADMIT Nurse Practitioner Acute Care; ATTEND Internal Medicine
PROC: 0PSD04Z Reposition Left Humeral Head with Internal Fixation Device, Open Approach (ICD-10-PCS; 2024-12-12)
PROC: 0RQK0ZZ Repair Left Shoulder Joint, Open Approach (ICD-10-PCS; 2024-12-12)
PROC: 0LQ20ZZ Repair Left Shoulder Tendon, Open Approach (ICD-10-PCS; principal; 2024-12-12 07:30)
DX: S43.015A Anterior dislocation of left humerus, initial encounter (principal); I21.A1 Myocardial infarction type 2; M62.82 Rhabdomyolysis; F03.90 Unspecified dementia, unspecified severity, without behavioral disturbance, psychotic disturbance, mood disturbance, and anxiety; K21.9 Gastro-esophageal reflux disease without esophagitis; E78.5 Hyperlipidemia, unspecified; Z79.899 Other long term (current) drug therapy; N32.81 Overactive bladder; F41.9 Anxiety disorder, unspecified; G47.00 Insomnia, unspecified; F32.9 Major depressive disorder, single episode, unspecified; Z91.09 Other allergy status, other than to drugs and biological substances; I50.9 Heart failure, unspecified; I11.0 Hypertensive heart disease with heart failure; E03.9 Hypothyroidism, unspecified
CPT/HCPCS: 36415; 71045-TC; 73020; 73030-TC; 73060-TC; 80048-TC; 80076-TC; 82550-TC; 83735-TC; 84100-TC; 84443-TC; 84484-TC; 85025-TC; 85730-TC; 86850-TC; 87081-TC; 93307-TC; 93930-TC; 93971-TC; A4223; A4565; A6253; C1713; G0378; J0330; J0360; J0690; J1100; J1650; J1885; J2250; J2270; J2405; J2704; J2795; J3010; J3480; J3490; J7030; J7050; J7060; L1830

== ENCOUNTER 2024-12-21 02:49 | Emergency (ER) | payer MEDICARE, OTHER ==
[~2024-12-21] VITALS: Ht 167.6 cm; Wt 54.4 kg
[~2024-12-21 02:49] MED LIST changes: +CELE100C PO; +DIVA125T32 PO; +EPIN0.3A4 IM; +FAMO20TA80 PO; -IBUP-1953 PO; -LORA-258 PO; -LOSA50TA39 PO; +MAG30ORA PO; +MAGN400O6 PO; +MIRT-90 PO; +MULT-594 PO; +OLAN5TAB3 PO; +OLAN7.5T3 PO; +PSYL1PAC8 PO; -RISP1TAB97 PO; -RISP2TAB85 PO; -TEMA7.5C PO
[2024-12-21 03:38] LABS: BASOPHILS % (AUTO) 0.3 % (0.0-2.0); EOSINOPHILS # (AUTO) 0.1 K/uL (0.0-0.7); EOSINOPHILS % (AUTO) 1.9 % (0.0-6.0); HEMATOCRIT 31 % (33-45); HEMOGLOBIN 10.6 g/dL (11.5-14.8); LYMPHOCYTES # (AUTO) 1.5 K/uL (0.8-4.8); LYMPHOCYTES % (AUTO) 25.7 % (20.0-44.0); MEAN CORPUSCULAR HEMOGLOBIN 28 PG (26.0-33.0); MEAN CORPUSCULAR HGB CONC 34 g/dl (31.0-36.0); MEAN CORPUSCULAR VOLUME 81 fL (82-100); MONOCYTES # (AUTO) 0.4 K/uL (0.1-1.30); MONOCYTES % (AUTO) 7.3 % (2.0-12.0); NEUTROPHILS # (AUTO) 3.8 K/uL (1.8-8.9); NEUTROPHILS % (AUTO) 64.8 % (43.0-81.0); PLATELET COUNT (AUTO) 327 K/uL (150-450); RED BLOOD CELL COUNT(AUTO) 3.84 MIL/uL (4.0-5.2); RED CELL DISTRIBUTION WIDTH 14.5 % (11.5-15.0); WHITE BLOOD COUNT (AUTO) 5.9 K/uL (4.3-11.0)
[2024-12-21 04:00] LABS: CALCIUM, SERUM 9.3 mg/dL (8.5-10.1); CREATININE 0.5 mg/dL (0.6-1.3); POTASSIUM 3.4 mmol/L (3.5-5.1)
[2024-12-21 04:13] LABS: INR 1.08 (0.91-1.10); PARTIAL THROMBOPLASTIN TIME 29.9 SEC (24.3-34.3); PROTHROMBIN TIME 11.4 SECS (9.2-11.1)
[2024-12-21 07:28] VITALS: BP 138/78; TEMP 98; O2SAT 98
== END 2024-12-21 07:29 | disposition home health service (06) ==
LOC: ER 02:55
DX: M79.89 Other specified soft tissue disorders (principal); I10 Essential (primary) hypertension; E78.5 Hyperlipidemia, unspecified; F03.90 Unspecified dementia, unspecified severity, without behavioral disturbance, psychotic disturbance, mood disturbance, and anxiety; N32.81 Overactive bladder; Z79.1 Long term (current) use of non-steroidal anti-inflammatories (NSAID); Z79.899 Other long term (current) drug therapy
CPT/HCPCS: 36415; 71045-TC; 73030-TC; 73060-TC; 73090-TC; 80048-TC; 85025-TC; 85730-TC; 93971-TC